=== PATIENT | male | born 1975 | race Caucasian/White ===

== ENCOUNTER 2018-01-28 17:07 | Inpatient (IN) ==
[2018-01-28] MEDS ORDERED: Sod Chloride 0.9% Inj 1,000 ML IV.SIG ONE (17:29)
[2018-01-28] MEDS ORDERED: Morphine Inj 4 MG/ML Vial IV.PUSH ONE ×2 (17:29→19:18)
--- NOTE | 2018-01-28 17:33 | ED ---
HPI General Chief Complaint: Chest Pain Stated Complaint: Chest Pain/abdominal pain Source: patient Mode of arrival: ambulatory Limitations: no limitations History of Present Illness MD complaint: abdominal pain Onset (ago): hour(s) (6) Pain Consistency: constant Location: RUQ and R flank Severity scale (1-10): 9 Quality: cramping Migration to: other (Chest) Relieving factors: nothing Exacerbating factors: nothing Associated symptoms: nausea and vomiting Related Data Home Medications Medication Instructions Recorded Confirmed No Known Home Medications 01/28/18 01/28/18 Allergies Allergy/AdvReac Type Severity Reaction Status Date / Time No Known Allergies Allergy Unverified 01/28/18 18:03 Review of Systems ROS: all other systems reviewed are negative [facility] Medical History Medical History Kidney stones (Acute) Social History Social History Substance History: No History of Abuse Second Hand Smoke Exposure: No Smoking Status: Never smoker How Often Do You Have a Drink Containing Alcohol: Monthly or less Recent Travel in [facility] within the Last 8 Weeks: No Recent Out of Country Travel within the Last 8 Weeks: No Immunization History Tetanus Immunization: Unsure Hx Influenza Vaccine This Season: Yes Exam Const General: cooperative, healthy appearing, well developed, well groomed, acute distress and diaphoretic Orientation: alert, awake and oriented x3 HENMT Head: normal to inspection, normocephalic and atraumatic Mouth: moist mucous membranes Eyes Conjunctivae: conjunctivae normal Sclera: sclerae normal EOM: EOM intact bilaterally Neck Neck: normal visual inspection and full ROM Chest Chest: normal inspection of the chest Resp Effort & Inspection: normal respiratory effort and able to speak in complete sentences Auscultation: clear to auscultation bilaterally Cardio Rate: regular rate Rhythm: regular rhythm GI Inspection: normal to inspection Palpation: soft and tender in the epigastrum and in the RUQ Back/Spine/Pelvis Cervical Spine: cervical ROM normal Thoracic/Lumbar Spine: thoraco-lumbar ROM normal Skin General: no rashes or lesions noted and turgor normal Neuro General: alert, awake, oriented x3, moves all extremities and CN's II-XI intact bilaterally Extrem General: normal to inspection and full ROM Psych Appearance: grossly normal Mental Status: mental status grossly normal Speech and Movement: speech and movement normal Mood: congruent mood Affect: normal affect Attitude: cooperative Thought Process: normal Thought Content: normal Judgment: judgment good Course Reevaluation(s) Reevaluation #1: Patient reports fairly good relief of his pain initially with morphine. However, his pain recurred with the ultrasound. He has been given an additional dose of morphine. Time: 19:23 Initial Documented Vital Signs Pulse Rate 84 01/28/18 17:25 Respiratory Rate 20 01/28/18 17:25 Blood Pressure 168/102 H 01/28/18 17:25 Pulse Oximetry 99 01/28/18 17:25 Last Documented Vital Signs Pulse Rate 54 L 01/28/18 19:50 Respiratory Rate 16 01/28/18 19:54 Blood Pressure 172/87 H 01/28/18 19:50 Pulse Oximetry 95 01/28/18 19:50 Medical Decision Making MDM Narrative Medical decision making narrative: This patient presents with the acute onset of right upper quadrant/flank pain at 11:00 this morning associated with an episode of emesis. He has subsequently developed some chest discomfort. His exam is remarkable for right upper quadrant tenderness. An IV is being started and he will be treated with IV morphine and ODT Zofran. I will also give him a liter of fluid. Routine abdominal pain labs are pending. Troponin has also been ordered. Gallbladder ultrasound has been ordered. Ultrasound shows cholelithiasis with gallbladder wall thickening. I am told that a cholecystectomy is on the list of procedures that can be done in [place]. Therefore, I have asked for admission to [facility] with consult to general surgery. Medical Screen Exam Complete: Yes Emergency Medical Condition: Yes Differential Diagnosis Differential Diagnosis: Differential diagnosis of abdominal pain includes but is not limited to gastritis, pancreatitis, hepatitis, gastroenteritis, constipation, urinary retention, peptic ulcer disease, diverticulitis or appendicitis Lab Data Lab results reviewed: Yes I reviewed the patient's lab results. Result diagrams: 01/28/18 17:40 01/28/18 17:40 Lab Results 01/28/18 01/28/18 Range/Units 17:40 17:40 CBC w Diff Auto diff final WBC 9.3 (4.0-11.0) th/mm3 RBC 5.23 (4.50-5.90) mil/mm3 Hgb 17.6 H (13.0-17.0) gm/dL Hct 50.9 (39.0-51.0) % MCV 97.4 (80.0-100.0) fL MCH 33.7 (27.0-34.0) pg MCHC 34.6 (32.0-36.0) % RDW 14.2 (11.6-17.2) % Plt Count 215 (150-450) th/mm3 MPV 9.4 (7.0-11.0) fL Neut % (Auto) 82.9 H (16.0-70.0) % Lymph % (Auto) 12.1 (9.0-44.0) % Mcculloch % (Auto) 4.3 (0.0-8.0) % Eos % (Auto) 0.4 (0.0-4.0) % Baso % (Auto) 0.3 (0.0-2.0) % Neut # (Auto) 7.8 H (1.8-7.7) th/mm3 Lymph # (Auto) 1.1 (1.0-4.8) th/mm3 Mcculloch # (Auto) 0.4 (0.0-0.9) th/mm3 Eos # (Auto) 0.0 (0.0-0.4) th/mm3 Baso # (Auto) 0.0 (0.0-0.2) th/mm3 WBC Differential . Differential Comment . Sodium 139 (136-145) meq/L Potassium 4.0 (3.5-5.1) meq/L Chloride 104 (98-107) meq/L Carbon Dioxide 28.8 (21.0-32.0) meq/L Anion Gap 6 (5-15) meq/L BUN 12 (7-18) mg/dL Creatinine 1.20 (0.60-1.30) mg/dL Estimated GFR 67 L (>89) mL/min Random Glucose 140 H (74-106) mg/dL Calcium 9.1 (8.5-10.1) mg/dL Total Bilirubin 0.5 (0.2-1.0) mg/dL AST 24 (15-37) U/L ALT 35 (12-78) U/L Alkaline Phosphatase 95 (45-117) U/L Troponin I Less than 0.02 L (0.02-0.05) ng/mL Total Protein 7.8 (6.4-8.2) g/dL Albumin 4.0 (3.4-5.0) g/dL Lipase 111 (73-393) U/L Imaging Data Radiologist's impression: Gallbladder Ultrasound 01/28/18 17:29 CONCLUSION: 1. Thick-walled gallbladder containing a gallstone in the neck suggesting possible acute cholecystitis. Clinical correlation is recommended. 2. Enlarged fatty liver. 3. Echogenic right kidney. ECG Data EKG Prior to Arrival: No Attestation: I personally reviewed and interpreted this ECG as follows: (EKG shows a sinus rhythm with a rate of 53. No STT wave changes noted.) Discharge Plan Discharge Disposition Patient Disposition: 30 Still Patient Discharge Details Diagnosis: Biliary colic Physicians Team ED Provider: Yashira Herring Primary Care Provider: [facility] Payton Attending Provider: Bridger Nash Other Providers: Abdoulaye Mcrae Status ED Status: Admitted Patient
[2018-01-28 17:48] LABS: Baso % (Auto) 0.3 % (0.0-2.0); Eos % (Auto) 0.4 % (0.0-4.0); Hematocrit 50.9 % (39.0-51.0); Hemoglobin 17.6 gm/dL (13.0-17.0); Lymph # (Auto) 1.1 th/mm3 (1.0-4.8); Lymph % (Auto) 12.1 % (9.0-44.0); Mean Corpuscular HGB Conc 34.6 % (32.0-36.0); Mean Corpuscular Hemoglobin 33.7 pg (27.0-34.0); Mean Corpuscular Volume 97.4 fL (80.0-100.0); Mean Platelet Volume 9.4 fL (7.0-11.0); Mono # (Auto) 0.4 th/mm3 (0.0-0.9); Mono % (Auto) 4.3 % (0.0-8.0); Neut # (Auto) 7.8 th/mm3 (1.8-7.7); Neut % (Auto) 82.9 % (16.0-70.0); Platelet Count 215 th/mm3 (150-450); Red Blood Count 5.23 mil/mm3 (4.50-5.90); Red Cell Distribution Width 14.2 % (11.6-17.2); White Blood Count 9.3 th/mm3 (4.0-11.0)
[2018-01-28 17:56] LABS: Chloride 104 meq/L (98-107); Sodium 139 meq/L (136-145)
[2018-01-28 18:00] LABS: Anion Gap 6 meq/L (5-15); Blood Urea Nitrogen 12 mg/dL (7-18); Calcium 9.1 mg/dL (8.5-10.1); Carbon Dioxide 28.8 meq/L (21.0-32.0); Glucose,Random 140 mg/dL (74-106); Lipase 111 U/L (73-393)
[2018-01-28 18:03] LABS: Alanine Aminotransferase 35 U/L (12-78); Aspartate Aminotransferase 24 U/L (15-37); Glomerular Filtration Rate 67 mL/min (>89)
[2018-01-28 18:05] LABS: Total Protein 7.8 g/dL (6.4-8.2)
[2018-01-28 18:06] LABS: Alkaline Phosphatase 95 U/L (45-117)
--- NOTE | 2018-01-28 19:39 | US ---
EXAM DATE: 01/28/2018 7:13 PM EDT AGE/SEX: 42 years / Male INDICATIONS: Epigastric pain with nausea and vomiting. CLINICAL DATA: This is the patient's initial encounter. Patient reports that signs and symptoms have been present for 1 day and indicates a pain score of 9/10. MEDICAL/SURGICAL HISTORY: Renal calculi. None. COMPARISON: . MEASUREMENTS: Liver:__ 18.4 cm. Common Bile Duct:__ 7mm. FINDINGS: Liver: Increased echotexture without focal lesion or ductal dilation. Portal Vein: Hepatopedal flow seen in portal vein. Common Duct: No intraluminal mass or stone visualized. Gallbladder: There is a gallstone within the neck of the gallbladder as well as gallbladder wall thi ckening. The findings raise the possibility of acute cholecystitis. Clinical correlation is recommend ed. Pancreas: The visualized portions are within normal limits Right Kidney: Increased echotexture. No mass or hydronephrosis. CONCLUSION: 1. Thick-walled gallbladder containing a gallstone in the neck suggesting possible acute cholecystit is. Clinical correlation is recommended. 2. Enlarged fatty liver. 3. Echogenic right kidney. Electronically signed by: Donnie Doran MD 01/28/2018 7:37 PM EDT
[2018-01-28] MEDS ORDERED: Bisacodyl 10 MG Supp RECTAL PRN (20:00)
[2018-01-28] MEDS ORDERED: Naloxone Inj 0.4 MG/ML Vial IV.PUSH PRN (20:05)
[2018-01-28] MEDS ORDERED: Morphine Sulfate Inj 2 MG/ML Vial IV.PUSH PRN (20:05)
[2018-01-28] MEDS: Sod Chloride 0.9% Inj 1,000 ML IV.CONT SCH (22:58)
[2018-01-28] MEDS: Morphine Inj 4 MG/ML Vial IV.PUSH PRN (23:27)
[2018-01-28 23:48] LABS: Bilirubin,Urine Negative (Negative); Clarity,Urine Clear (Clear); Color,Urine Yellow (Yellw/Straw); Glucose,Urine (UA) Negative (Negative); Leukocyte Esterase,Urine Negative (Negative); Nitrite,Urine Negative (Negative); Specific Gravity,Urine 1.025 (1.002-1.035)
[2018-01-28 23:52] LABS: RBC,Urine 0-3 /hpf (0-3); Squamous Epithelial Cell,Urine 0-5 /hpf (0-5); WBC,Urine 0-5 /hpf (0-5)
[2018-01-29] MEDS: Morphine Inj 4 MG/ML Vial IV.PUSH PRN (03:32)
[2018-01-29] MEDS: Sod Chloride 0.9% Inj 1,000 ML IV.CONT SCH ×2 (05:17→18:17)
[2018-01-29 06:56] LABS: Baso % (Auto) 0.2 % (0.0-2.0); Eos # (Auto) 0.1 th/mm3 (0.0-0.4); Eos % (Auto) 0.5 % (0.0-4.0); Hematocrit 54.5 % (39.0-51.0); Hemoglobin 18.1 gm/dL (13.0-17.0); Lymph # (Auto) 0.8 th/mm3 (1.0-4.8); Lymph % (Auto) 7.8 % (9.0-44.0); Mean Corpuscular HGB Conc 33.2 % (32.0-36.0); Mean Corpuscular Hemoglobin 33.2 pg (27.0-34.0); Mean Corpuscular Volume 99.9 fL (80.0-100.0); Mean Platelet Volume 10.6 fL (7.0-11.0); Mono # (Auto) 0.1 th/mm3 (0.0-0.9); Mono % (Auto) 0.9 % (0.0-8.0); Neut # (Auto) 9.2 th/mm3 (1.8-7.7); Neut % (Auto) 90.6 % (16.0-70.0); Platelet Count 183 th/mm3 (150-450); Red Blood Count 5.45 mil/mm3 (4.50-5.90); Red Cell Distribution Width 13.9 % (11.6-17.2); White Blood Count 10.2 th/mm3 (4.0-11.0)
[2018-01-29 07:07] LABS: Chloride 103 meq/L (98-107); Potassium 3.9 meq/L (3.5-5.1); Sodium 139 meq/L (136-145)
[2018-01-29 07:13] LABS: Albumin 4.1 g/dL (3.4-5.0); Anion Gap 9 meq/L (5-15); Calcium 8.7 mg/dL (8.5-10.1); Carbon Dioxide 26.9 meq/L (21.0-32.0); Glucose,Random 92 mg/dL (74-106)
[2018-01-29 07:14] LABS: Blood Urea Nitrogen 10 mg/dL (7-18)
[2018-01-29 07:16] LABS: Alanine Aminotransferase 35 U/L (12-78); Aspartate Aminotransferase 23 U/L (15-37)
[2018-01-29 07:17] LABS: Glomerular Filtration Rate 67 mL/min (>89)
[2018-01-29 07:18] LABS: Total Protein 8.3 g/dL (6.4-8.2)
[2018-01-29 07:19] LABS: Alkaline Phosphatase 98 U/L (45-117)
--- NOTE | 2018-01-29 10:46 | P.CONGS ---
HPI Gen Surgery Consult Note Consult date: 01/29/18 Reason for consult: gallstones Narrative: This is a 42 year old male with a past medical history of kidney stones who presented to ED with complaints acute onset of abdominal pain with no associated nausea or vomiting. The patient stated the pain began about 11AM on Saturday. An US was obtained which shows some gallbladder wall thickening and cholelithiasis. His WBC is normal. His liver enzymes are normal. He reports not dietary intolerances. A General Surgery consultation has been requested. Review of Systems Constitutional: Denies body ache(s), Denies chills, Denies fatigue Eyes: Denies bulging eyes Ears, Nose, Mouth, and Throat: Denies headache(s) Cardiovascular: Denies chest pain, Denies chest pain at rest, Denies chest pain with activity Respiratory: Denies chest congestion, Denies cough Gastrointestinal: Reports abdominal pain, Denies nausea, Denies vomiting Genitourinary: Denies urinary incontinence Musculoskeletal: Denies back pain Skin/Breast: Denies lesions Neurologic: Denies headache(s) Psychiatric: Denies anxiety, Denies depression Endocrine: Denies cold intolerance, Denies heat intolerance Hematologic/Lymphatic: Denies easy bleeding Allergic/Immunologic: Denies GI upset with certain foods PMFSH - History History Provided By: Patient - Medical History Medical History: Medical History (Last Reviewed 01/29/18 @ 13:51 by ALISSON Briseno) Kidney stones - Surgical History Surgical History: Surgical History (Last Reviewed 01/29/18 @ 13:51 by ALISSON Briseno) History of hand surgery History of tympanoplasty - Family History Family History: Family History (Last Updated 01/29/18 @ 10:54 by BRI Camargo) Other No pertinent family history - Tobacco History Second Hand Smoke Exposure: No Smoking Status: Never smoker - Alcohol History How Often Do You Have a Drink Containing Alcohol: Monthly or less - Substance Use History Substance History: No History of Abuse - Travel History Recent Travel in the [place] Within the Last 8 Weeks: No Recent Travel Out of the Country Within the Last 8 Weeks: No - Immunization History Tetanus Immunization: Unsure Hx Influenza Vaccine This Season: Yes Medications and Allergies Allergies Allergy/AdvReac Type Severity Reaction Status Date / Time No Known Allergies Allergy Unverified 01/29/18 11:19 Home Medications Medication Instructions Recorded Confirmed Type No Known Home Medications 01/28/18 01/28/18 History Active Medications: Active Medications Hydrocodone Bitart/Acetaminophen ([place] 7.5/325) 1 tab PO Q4H PRN PRN Reason: PAIN SCALE 6 TO 10 Last Admin: 01/29/18 07:58 Dose: 1 tab Hydrocodone Bitart/Acetaminophen ([place] 5/325) 1 tab PO Q4H PRN PRN Reason: PAIN SCALE 3 TO 5 Al Hydroxide/Mg Hydroxide (Milk Of Magnesia Liq) 30 ml PO Q12H PRN PRN Reason: Mild Constipation Bisacodyl (Dulcolax Supp) 10 mg RECTAL DAILY PRN PRN Reason: SEVERE CONSITIPATION Enalaprilat (Vasotec Inj) 1.25 mg IV.PUSH Q6H PRN PRN Reason: SBP>160, DBP>90 Last Admin: 01/28/18 21:20 Dose: 1.25 mg Sodium Chloride (Ns Inj) 1,000 mls @ 100 mls/hr IV.CONT .Q10H [facility] Last Infusion: 01/29/18 05:18 Dose: Infused Ceftriaxone Sodium 2,000 mg/ (Sodium Chloride) 100 mls @ 200 mls/hr IV.SIG Q24H [facility] Last Infusion: 01/28/18 22:25 Dose: Infused Lactulose (Lactulose Liq) 30 ml PO DAILY PRN PRN Reason: SEVERE CONSITIPATION Morphine Sulfate (Morphine Inj) 2 mg IV.PUSH Q3H PRN PRN Reason: PAIN 3-5; IF UABLE TO TAKE PO Morphine Sulfate (Morphine Inj) 4 mg IV.PUSH Q3H PRN PRN Reason: PAIN 6-10;IF UNABLE TO TAKE PO Last Admin: 01/29/18 03:32 Dose: 4 mg Naloxone HCl (Narcan Inj) 0.4 mg IV.PUSH UNSCH PRN PRN Reason: SEE LABEL COMMENTS Sennosides (Senokot) 17.2 mg PO Q12H PRN PRN Reason: Moderate Constipation Sodium Chloride (Ns Flush) 2 ml IV.FLUSH PRN PRN PRN Reason: FLUSH AFTER USING IV ACCESS Last Admin: 01/28/18 18:06 Dose: 2 ml Exam Vital signs: Vital Signs 01/28/18 17:25 01/28/18 19:50 08/28/18 19:54 Temperature Pulse Rate 84 54 L Respiratory Rate 20 16 Blood Pressure 168/102 H 172/87 H Pulse Oximetry 99 95 01/28/18 21:17 01/28/18 22:17 01/29/18 00:00 Temperature 97.5 F L Pulse Rate 62 52 L 67 Respiratory Rate 18 16 18 Blood Pressure 163/84 H 189/89 H 140/92 H Pulse Oximetry 100 98 92 L 01/29/18 04:00 01/29/18 08:00 Temperature 101.0 F H 99.8 F H Pulse Rate 65 103 H Respiratory Rate 18 20 Blood Pressure 138/61 142/81 H Pulse Oximetry 98 94 L Intake & Output 01/28/18 01/29/18 01/29/18 18:59 06:59 18:59 Intake Total 3100 / 3100 Output Total 650 / 650 Balance 2450 / 2450 Weight 119 kg 119 kg Intake: IV 3100 / 3100 NS Inj 1,000 ML @ 100 mls/hr IV 2000 / 1999 .CONT .Q10H [facility] Rx#:[id number] NS Inj 1,000 ML @ Wide Open IV. 1000 / 1000 SIG BOLUS ONE Rx#:[id number] Rocephin Inj 2,000 MG In NS Inj 100 / 100 100 ML @ 200 mls/hr IV.SIG Q24H [facility]QU[facility] Rx#:[id number] Output: Urine 650 / 650 Narrative: GENERAL: Pleasant 42 year male resting in bed in no acute distress. SKIN: Warm and dry. HEAD: Atraumatic. Normocephalic. EYES: Pupils equal and round. No scleral icterus. No injection or drainage. ENT: No nasal bleeding or discharge. Mucous membranes pink and moist. NECK: Trachea midline. No JVD. CARDIOVASCULAR: Regular rate and rhythm. RESPIRATORY: No accessory muscle use. Clear to auscultation. Breath sounds equal bilaterally. GASTROINTESTINAL: Abdomen soft, non distended. Obese. No visible scars or hernias. RUQ tenderness with palpation. MUSCULOSKELETAL: Extremities without clubbing, cyanosis, or edema. No obvious deformities. NEUROLOGICAL: Awake and alert. No obvious cranial nerve deficits. Motor grossly within normal limits. Five out of 5 muscle strength in the arms and legs. Normal speech. PSYCHIATRIC: Appropriate mood and affect; insight and judgment normal. Results - Labs 01/29/18 05:15 08/29/18 05:15 Abnormal lab results 01/28/18 01/28/18 01/28/18 Range/Units 17:40 17:40 23:00 Hgb 17.6 H (13.0-17.0) gm/dL Hct (39.0-51.0) % Neut % (Auto) 82.9 H (16.0-70.0) % Lymph % (Auto) (9.0-44.0) % Neut # (Auto) 7.8 H (1.8-7.7) th/mm3 Lymph # (Auto) (1.0-4.8) th/mm3 Estimated GFR 67 L (>89) mL/min Random Glucose 140 H (74-106) mg/dL Troponin I Less than 0.02 L (0.02-0.05) ng/mL Total Protein (6.4-8.2) g/dL Urine Ketones 15 H (Negative) mg/dL 01/29/18 01/29/18 Range/Units 05:15 05:15 Hgb 18.1 H (13.0-17.0) gm/dL Hct 54.5 H (39.0-51.0) % Neut % (Auto) 90.6 H (16.0-70.0) % Lymph % (Auto) 7.8 L (9.0-44.0) % Neut # (Auto) 9.2 H (1.8-7.7) th/mm3 Lymph # (Auto) 0.8 L (1.0-4.8) th/mm3 Estimated GFR 67 L (>89) mL/min Random Glucose (74-106) mg/dL Troponin I (0.02-0.05) ng/mL Total Protein 8.3 H (6.4-8.2) g/dL Urine Ketones (Negative) mg/dL Diabetes panel 01/28/18 01/29/18 Range/Units 17:40 05:15 Sodium 139 139 (136-145) meq/L Potassium 4.0 3.9 (3.5-5.1) meq/L Chloride 104 103 (98-107) meq/L Carbon Dioxide 28.8 26.9 (21.0-32.0) meq/L BUN 12 10 (7-18) mg/dL Creatinine 1.20 1.20 (0.60-1.30) mg/dL Calcium 9.1 8.7 (8.5-10.1) mg/dL AST 24 23 (15-37) U/L ALT 35 35 (12-78) U/L Alkaline Phosphatase 95 98 (45-117) U/L Total Protein 7.8 8.3 H (6.4-8.2) g/dL Albumin 4.0 4.1 (3.4-5.0) g/dL Calcium panel 01/28/18 01/29/18 Range/Units 17:40 05:15 Calcium 9.1 8.7 (8.5-10.1) mg/dL Albumin 4.0 4.1 (3.4-5.0) g/dL Pituitary panel 01/28/18 01/29/18 Range/Units 17:40 05:15 Sodium 139 139 (136-145) meq/L Potassium 4.0 3.9 (3.5-5.1) meq/L Chloride 104 103 (98-107) meq/L Carbon Dioxide 28.8 26.9 (21.0-32.0) meq/L BUN 12 10 (7-18) mg/dL Creatinine 1.20 1.20 (0.60-1.30) mg/dL Calcium 9.1 8.7 (8.5-10.1) mg/dL Adrenal panel 01/28/18 01/29/18 Range/Units 17:40 05:15 Sodium 139 139 (136-145) meq/L Potassium 4.0 3.9 (3.5-5.1) meq/L Chloride 104 103 (98-107) meq/L Carbon Dioxide 28.8 26.9 (21.0-32.0) meq/L BUN 12 10 (7-18) mg/dL Creatinine 1.20 1.20 (0.60-1.30) mg/dL Calcium 9.1 8.7 (8.5-10.1) mg/dL Total Bilirubin 0.5 0.8 (0.2-1.0) mg/dL AST 24 23 (15-37) U/L ALT 35 35 (12-78) U/L Alkaline Phosphatase 95 98 (45-117) U/L Total Protein 7.8 8.3 H (6.4-8.2) g/dL Albumin 4.0 4.1 (3.4-5.0) g/dL All other labs normal. - Imaging Additional studies: US gallbladder Assessment and Plan - Assessment (1) Biliary colic Code(s): K80.50 - Calculus of bile duct without cholangitis or cholecystitis without obstruction Status: Acute Plan: 42 year old male with RUQ abdominal pain; cholelithiasis -Plan for laparoscopic cholecystectomy today -NPO -Obtain consents -Ancef preop -Explained procedure in detail including risks and benefits -All questions answered -Thank you for this consult patient seen at bedside ruq pain, acute cholecystitis need for lap alejandra discussed with patient and girl friend - Plan Discussed Condition With: Dr. Christian GREGORY MrTristan and Mrs. Hoffmann - Attending Attestation The exam, history, and the medical decision-making described in the above note were completed with the assistance of the mid-level provider. I reviewed and agree with the findings presented. I attest that I had a [id number] encounter with the patient on the same day, and personally performed and documented my assessment and findings in the medical record.
--- NOTE | 2018-01-29 11:05 | P.HP ---
History of Present Illness Primary Care Physician: No Primary Care Physician Chief Complaint: Abdominal pain History of Present Illness: 42-year-old male with no chronic medical illnesses who developed sudden onset of right-sided abdominal pain after he ate a a and cheese wrap from [employer]. Patient states that the pain started on the right side and progressively got worse until it was a 10/10 on a pain scale. Patient states that he has had history of kidney stones before he thought that might have been the problem but because the pain did not go away he came to the emergency department for evaluation. Upon workup patient was found to have gallbladder wall thickening with multiple stones and acute cholecystitis. Patient was admitted with surgical consultation. Patient states that the pain is controlled at this time. Plan for surgery today. - Diagnosis (1) Acute cholecystitis Inpatient Certification: I certify that the inpatient services were ordered in accordance with Medicare regulations governing the order. This includes certification that hospital inpatient services are reasonable and necessary and in the case of services not specified as inpatient-only under 42 CFR 419.22(n), that they are appropriately provided as inpatient services in accordance to with the 2-midnight benchmark under 43 CFR 412.3(e) Estimated Total Length of Stay (Days): 2 Plans for Post Hospital Care: Home Review of Systems All other systems reviewed negative except as stated in HPI Gastrointestinal: Reports abdominal pain PMFSH - History History Provided By: Patient - Medical History Medical History: Medical History (Last Reviewed 01/29/18 @ 11:01 by BRI Camargo) Kidney stones - Surgical History Surgical History: Surgical History (Last Reviewed 01/29/18 @ 13:51 by ALISSON Briseno) History of hand surgery History of tympanoplasty - Family History Family History: Family History (Last Updated 01/29/18 @ 10:54 by BRI Camargo) Other No pertinent family history - Tobacco History Second Hand Smoke Exposure: No Smoking Status: Never smoker - Alcohol History How Often Do You Have a Drink Containing Alcohol: Monthly or less - Substance Use History Substance History: No History of Abuse - Travel History Recent Travel in the [place] Within the Last 8 Weeks: No Recent Travel Out of the Country Within the Last 8 Weeks: No - Immunization History Tetanus Immunization: Unsure Hx Influenza Vaccine This Season: Yes Medications and Allergies Active Medications: Active Medications Hydrocodone Bitart/Acetaminophen ([place] 7.5/325) 1 tab PO Q4H PRN PRN Reason: PAIN SCALE 6 TO 10 Last Admin: 01/29/18 07:58 Dose: 1 tab Hydrocodone Bitart/Acetaminophen ([place] 5/325) 1 tab PO Q4H PRN PRN Reason: PAIN SCALE 3 TO 5 Al Hydroxide/Mg Hydroxide (Milk Of Magnesia Liq) 30 ml PO Q12H PRN PRN Reason: Mild Constipation Bisacodyl (Dulcolax Supp) 10 mg RECTAL DAILY PRN PRN Reason: SEVERE CONSITIPATION Enalaprilat (Vasotec Inj) 1.25 mg IV.PUSH Q6H PRN PRN Reason: SBP>160, DBP>90 Last Admin: 01/28/18 21:20 Dose: 1.25 mg Sodium Chloride (Ns Inj) 1,000 mls @ 100 mls/hr IV.CONT .Q10H [facility] Last Infusion: 01/29/18 05:18 Dose: Infused Ceftriaxone Sodium 2,000 mg/ (Sodium Chloride) 100 mls @ 200 mls/hr IV.SIG Q24H [facility] Last Infusion: 01/28/18 22:25 Dose: Infused Lactulose (Lactulose Liq) 30 ml PO DAILY PRN PRN Reason: SEVERE CONSITIPATION Morphine Sulfate (Morphine Inj) 2 mg IV.PUSH Q3H PRN PRN Reason: PAIN 3-5; IF UABLE TO TAKE PO Morphine Sulfate (Morphine Inj) 4 mg IV.PUSH Q3H PRN PRN Reason: PAIN 6-10;IF UNABLE TO TAKE PO Last Admin: 01/29/18 03:32 Dose: 4 mg Naloxone HCl (Narcan Inj) 0.4 mg IV.PUSH UNSCH PRN PRN Reason: SEE LABEL COMMENTS Sennosides (Senokot) 17.2 mg PO Q12H PRN PRN Reason: Moderate Constipation Sodium Chloride (Ns Flush) 2 ml IV.FLUSH PRN PRN PRN Reason: FLUSH AFTER USING IV ACCESS Last Admin: 01/28/18 18:06 Dose: 2 ml Allergies Allergy/AdvReac Type Severity Reaction Status Date / Time No Known Allergies Allergy Unverified 01/29/18 11:19 Home Medications Medication Instructions Recorded Confirmed Type No Known Home Medications 01/28/18 01/28/18 History Exam Vital signs: Vital Signs 01/28/18 17:25 01/28/18 19:50 01/28/18 19:54 Temperature Pulse Rate 84 54 L Respiratory Rate 20 16 Blood Pressure 168/102 H 172/87 H Pulse Oximetry 99 95 01/28/18 21:17 01/28/18 22:17 01/29/18 00:00 Temperature 97.5 F L Pulse Rate 62 52 L 67 Respiratory Rate 18 16 18 Blood Pressure 163/84 H 189/89 H 140/92 H Pulse Oximetry 100 98 92 L 01/29/18 04:00 01/29/18 08:00 Temperature 101.0 F H 99.8 F H Pulse Rate 65 103 H Respiratory Rate 18 20 Blood Pressure 138/61 142/81 H Pulse Oximetry 98 94 L Intake & Output 01/28/18 01/29/18 01/29/18 18:59 06:59 18:59 Intake Total 3100 / 3100 Output Total 650 / 650 Balance 2450 / 2450 Weight 119 kg 119 kg Intake: IV 3100 / 3100 NS Inj 1,000 ML @ 100 mls/hr IV 1999 / 1999 .CONT .Q10H [facility] Rx#:[id number] NS Inj 1,000 ML @ Wide Open IV. 1000 / 1000 SIG BOLUS ONE Rx#:[id number] Rocephin Inj 2,000 MG In NS Inj 100 / 100 100 ML @ 200 mls/hr IV.SIG Q24H [facility] Rx#:[id number] Output: Urine 650 / 650 Narrative: GENERAL: Well-developed, well-nourished, in no acute distress. alert and orientated HEENT: Head is normocephalic without any lesions or masses noted. Facial features are symmetric. Eyes: Pupils equal round reactive to light. Extraocular muscles are intact. Conjunctivae were clear. Oropharyngeal: Pharynx without any erythema edema. Tongue is midline without deviation. Buccal mucosa is moist without any masses or lesions NECK: Supple without any masses. Trachea midline no deviation. No JVD, no bruits are appreciated CARDIAC: Regular rhythm, regular rate. S1/S2 are heard. No murmurs gallops or rubs. LUNGS: Clear to auscultation bilaterally. No wheeze, rhonchi or rales. No use of accessory muscles on inspiration or expiration. ABDOMEN: Soft, mild tenderness in the right upper quadrant.. Nondistended. Bowel sounds heard in all 4 quadrants. No organomegaly or masses. Negative rebound, negative guarding EXTREMITIES: No edema, pulses are equal bilaterally. No cyanosis or clubbing NEUROLOGY: Mood and affect appear appropriate. Cranial nerves II through XII grossly intact. Muscle strength 5/5 in upper and lower extremities bilaterally. Deep tendon reflexes are 2+ in upper and lower extremities bilaterally. Results - Labs CBC & Chem 7: 01/29/18 05:15 01/29/18 05:15 Labs: Laboratory Results - last 24 hr 01/28/18 01/28/18 01/28/18 17:40 17:40 23:00 CBC w Diff Auto diff final WBC 9.3 RBC 5.23 Hgb 17.6 H Hct 50.9 MCV 97.4 MCH 33.7 MCHC 34.6 RDW 14.2 Plt Count 215 MPV 9.4 Neut % (Auto) 82.9 H Lymph % (Auto) 12.1 Russell % (Auto) 4.3 Eos % (Auto) 0.4 Baso % (Auto) 0.3 Neut # (Auto) 7.8 H Lymph # (Auto) 1.1 Russell # (Auto) 0.4 Eos # (Auto) 0.0 Baso # (Auto) 0.0 WBC Differential . Differential Comment . Sodium 139 Potassium 4.0 Chloride 104 Carbon Dioxide 28.8 Anion Gap 6 BUN 12 Creatinine 1.20 Estimated GFR 67 L Random Glucose 140 H Calcium 9.1 Total Bilirubin 0.5 AST 24 ALT 35 Alkaline Phosphatase 95 Troponin I Less than 0.02 L Total Protein 7.8 Albumin 4.0 Lipase 111 Urine Color Yellow Urine Clarity Clear Urine pH 6.0 Ur Specific [place] 1.025 Urine Protein Negative Urine Glucose (UA) Negative Urine Ketones 15 H Urine Occult Blood Negative Urine Nitrate Negative Urine Bilirubin Negative Urine Urobilinogen 1.0 Ur Leukocyte Esterase Negative Urine RBC 0-3 Urine WBC 0-5 Ur Squamous Epith Cells 0-5 Micro UA Comment Culture not ind Ur Microscopic Review Microscopic reviewed Urine Culture Comments Culture not ind 01/29/18 01/29/18 05:15 05:15 CBC w Diff Auto diff final WBC 10.2 RBC 5.45 Hgb 18.1 H Hct 54.5 H MCV 99.9 MCH 33.2 MCHC 33.2 RDW 13.9 Plt Count 183 MPV 10.6 Neut % (Auto) 90.6 H Lymph % (Auto) 7.8 L Russell % (Auto) 0.9 Eos % (Auto) 0.5 Baso % (Auto) 0.2 Neut # (Auto) 9.2 H Lymph # (Auto) 0.8 L Russell # (Auto) 0.1 Eos # (Auto) 0.1 Baso # (Auto) 0.0 WBC Differential . Differential Comment . Sodium 139 Potassium 3.9 Chloride 103 Carbon Dioxide 26.9 Anion Gap 9 BUN 10 Creatinine 1.20 Estimated GFR 67 L Random Glucose 92 Calcium 8.7 Total Bilirubin 0.8 AST 23 ALT 35 Alkaline Phosphatase 98 Troponin I Total Protein 8.3 H Albumin 4.1 Lipase Urine Color Urine Clarity Urine pH Ur Specific [place] Urine Protein Urine Glucose (UA) Urine Ketones Urine Occult Blood Urine Nitrate Urine Bilirubin Urine Urobilinogen Ur Leukocyte Esterase Urine RBC Urine WBC Ur Squamous Epith Cells Micro UA Comment Ur Microscopic Review Urine Culture Comments - Imaging Impressions Gallbladder Ultrasound 01/28/18 17:29 CONCLUSION: 1. Thick-walled gallbladder containing a gallstone in the neck suggesting possible acute cholecystitis. Clinical correlation is recommended. 2. Enlarged fatty liver. 3. Echogenic right kidney. Caprini VTE Risk Assessment Caprini VTE Risk Assessment: No/Low Risk (score <= 1) Caprini Risk Assessment Model: Point Value = 1 Point Value = 2 Point Value = 3 Point Value = 5 Age 41-60 Minor surgery BMI > 25 kg/m2 Swollen legs Varicose veins or History of unexplained or recurrent spontaneous Oral contraceptives or hormone replacement Sepsis (< 1 month) Serious lung disease, including pneumonia (< 1 month) Abnormal pulmonary function Acute myocardial infarction Congestive heart failure (< 1 month) History of inflammatory bowel disease Medical patient at bed rest Age 61-74 Arthroscopic surgery Major open surgery (> 45 min) Laparoscopic surgery (> 45 min) Malignancy Confined to bed (> 72 hours) Immobilizing plaster cast Central venous access Age >= 75 History of VTE Family history of VTE Factor V Leiden Prothrombin [id number] Lupus anticoagulant Anticardiolipin antibodies Elevated serum homocysteine Heparin-induced thrombocytopenia Other congenital or acquired thrombophilia Stroke (< 1 month) Elective arthroplasty Hip, pelvis, or leg fracture Acute spinal cord injury (< 1 month) Prophylaxis Regimen: Total Risk Factor Score Risk Level Prophylaxis Regimen 0-1 Low Early ambulation 2 Moderate Order ONE of the following: *Sequential Compression Device (SCD) *Heparin 5000 units SQ BID 3-4 Higher Order ONE of the following medications: *Heparin 5000 units SQ TID *Enoxaparin/Lovenox 40 mg SQ daily (WT < 150 kg, CrCl > 30 mL/min) *Enoxaparin/Lovenox 30 mg SQ daily (WT < 150 kg, CrCl > 10-29 mL/min) *Enoxaparin/Lovenox 30 mg SQ BID (WT < 150 kg, CrCl > 30 mL/min) AND/OR *Sequential Compression Device (SCD) 5 or more Highest Order ONE of the following medications: *Heparin 5000 units SQ TID (Preferred with Epidurals) *Enoxaparin/Lovenox 40 mg SQ daily (WT < 150 kg, CrCl > 30 mL/min) *Enoxaparin/Lovenox 30 mg SQ daily (WT < 150 kg, CrCl > 10-29 mL/min) *Enoxaparin/Lovenox 30 mg SQ BID (WT < 150 kg, CrCl > 30 mL/min) AND *Sequential Compression Device (SCD) Assessment and Plan - Assessment (1) Acute cholecystitis Code(s): K81.0 - Acute cholecystitis Status: Acute - Plan Acute cholecystitis -Continue IV fluids, pain control -General surgery consulted and plans to take patient to the OR today for cholecystectomy -Preop antibiotics per surgery. DVT prevention -Sequential compression devices
[2018-01-29] MEDS ORDERED: Bupivacaine/Epinephrine PF Inj 0.5% 30 ML Vial ONE (11:13)
[2018-01-29] MEDS ORDERED: Lidocaine 1%/Epinephrine 1:100,000 Inj 30 ML Vial ONE (11:13)
[2018-01-29] MEDS ORDERED: Metoprolol Tartrate 25 MG Tablet PO SCH (11:30)
[2018-01-29] MEDS ORDERED: Chlorhexidine Gluconate 2% 1 Pack (2 Cloths) TOPICAL SCH (11:30)
[2018-01-29] MEDS ORDERED: Famotidine PF Inj 20 MG/2 ML Vial ONE (11:32)
[2018-01-29] MEDS ORDERED: ceFAZolin 2 GM Premix Inj 2 GM/50 ML PIGGYBACK IV.SIG ONE (11:34)
--- NOTE | 2018-01-29 11:40 | P.OP ---
- Preoperative Diagnosis (1) Acute cholecystitis - Postoperative Diagnosis (1) Acute cholecystitis Date of procedure: 01/29/18 Procedure: lap alejandra Anesthesia: GETA Surgeon: Pablo Gonzales MD Estimated blood loss (mL): 5 Pathology: other (gallbladder) Operation and Findings: acute cholecystitis
[2018-01-29] MEDS ORDERED: ceFAZolin 2 GM IV; once IV.SIG PRN (11:57)
[2018-01-29] MEDS ORDERED: Sodium Chlor 0.9% Inj 500 ML IV.SIG SCH (12:00)
[2018-01-29] MEDS ORDERED: Lidocaine PF 1% Inj 5 ML Syringe INFILTRATN ONE (12:02)
[2018-01-29] MEDS ORDERED: Esmolol Bolus Inj 100 MG/10 ML Vial IV.PUSH ONE (12:02)
[2018-01-29] MEDS ORDERED: Metoprolol Inj 5 MG/5 ML Vial IV.PUSH ONE (12:02)
[2018-01-29] MEDS ORDERED: Neostigmine Inj 5 MG/5 ML Syringe IV.PUSH ONE (12:02)
[2018-01-29] MEDS ORDERED: Phenylephrine/NS 1000 MCG/10ML Syringe IV.PUSH ONE (12:02)
[2018-01-29] MEDS ORDERED: Sugammadex Inj 200 MG/2 ML Vial IV.PUSH ONE (13:29)
[2018-01-29] MEDS ORDERED: fentaNYL Citrate Inj 100 MCG/2 ML Ampul ONE (13:29)
--- NOTE | 2018-01-29 14:17 | XR ---
EXAM DATE: 01/29/2018 2:02 PM EDT AGE/SEX: 42 years / Male INDICATIONS: Dyspnea post surgery. CLINICAL DATA: This is the patient's initial encounter. Patient reports that signs and symptoms have been present for 1 day and indicates a pain score of 0/10. MEDICAL/SURGICAL HISTORY: None. . Kidney stones COMPARISON: No prior exams available for comparison. FINDINGS: Low lung volumes with minimal airspace disease at the left lung base. Cardiomediastinal contours are within normal limits given portable technique and degree of hypoexpansion. Osseous structures are int act. CONCLUSION: 1. Low lung volumes with minimal left lung base atelectasis. Electronically signed by: Gabe Holbrook MD 01/29/2018 2:15 PM EDT
--- NOTE | 2018-01-29 19:21 | MP ---
cc: Pablo Gonzales MD DATE OF OPERATION: 01/29/2018 PREOPERATIVE DIAGNOSIS: Acute cholecystitis with cholelithiasis. POSTOPERATIVE DIAGNOSIS: Acute cholecystitis with cholelithiasis. PROCEDURE PERFORMED: Laparoscopic cholecystectomy. SURGEON: Pablo Gonzales MD. SETUP OPERATOR: See OR sheet. ANESTHESIA: GETA. IV FLUIDS: See anesthesia sheet. ESTIMATED BLOOD LOSS: 15 mL. DRAINS: None. COMPLICATIONS: None. CLASSIFICATION: Clean/contaminated. SPECIMENS: Gallbladder. FINDINGS: Acutely inflamed gallbladder with adhesions. Multiple large gallstones. COMPLICATIONS: None. INDICATIONS: The patient is a 42-year-old male, who presents with acute onset of right upper quadrant abdominal pain. He stated the pain started acutely yesterday at 11 a.m. and continued to get worse. No improvement. Came to the emergency department for evaluation, with an ultrasound showing thickened gallbladder wall with multiple gallstones. Decision was for laparoscopic cholecystectomy. DETAILS OF PROCEDURE: The patient was taken to the operating suite, placed in supine position. He was prepped and draped in the usual sterile fashion after induction of general endotracheal anesthesia. Brief timeout done stating correct patient, procedure, and surgical site. All in the room agreed. Attention first directed to the umbilicus superiorly. A local anesthetic injected with a stab maira incision made with a 15 blade. The Optiview 5-mm scope was used to enter the abdomen safely. Abdomen insufflated to 15 mm in pneumoperitoneum. Three other ports were placed, including epigastric 12 mm and two 5-mm right subcostal ports. The patient was placed in reverse Trendelenburg, airplaned to the left. The gallbladder was observed and noted to have several adhesions to the omentum. Hook electrocautery was used to remove these. The gallbladder fundus was grasped and retracted cephalad. Gallbladder was noted to have very thick rind, difficulty grasping; therefore, Endo Needle was used for aspiration to remove the bile from the gallbladder. The gallbladder was retracted cephalad. The cystic duct and cystic artery were dissected using hook electro Bovie cautery, a [place], and suction irrigation. The cystic artery was identified, 2 clips placed proximally and 1 distally. Endo Koby used to transect this. The cystic duct was identified as well. Two clips were placed proximal and 1 distal. Endo Koby used to transect this. Gallbladder was removed from the gallbladder fossa using hook electro Bovie cautery. All were placed in the Endo Catch Bag and removed from the abdomen through the epigastric port. Suction irrigation done until the effluent was clear. Electro Bovie cautery used as a hemostatic. We made the gallbladder fossa dry. No evidence of biliary leak. A small little piece of Surgicel placed at wound site. Pneumoperitoneum removed, the ports were removed. The 12 mm was closed with 0 Vicryl [id number] to the fascia and 4-0 Monocryl done in all subcuticular incision sites. Local anesthetic injected. Sterile dressings including Mastisol and Steri-Strips placed. The patient tolerated the procedure well. There were no intraoperative complications. All lap and needle counts were correct at the end of procedure. The patient was extubated and taken stable to PACU. MD SUNNY Marks/glen , 05:42 PM , 05:49 PM
--- NOTE | 2018-01-29 21:36 | ECG ---
Date Performed: 01/28/2018 Time Performed: 17:14:55 PTAGE: 42 years EKG: SINUS BRADYCARDIA BORDERLINE ECG INTERPRETATION BASED ON A DEFAULT AGE OF 41 YEARS PREVIOUS TRACING : 08/08/2015 18.14 Since the previous tracing, no significant change not ed DOCTOR: Etienne Calderón Interpretating Date/Time 01/29/2018 21:35:59
[2018-01-29 22:43] VITALS: RESP 18
[2018-01-30 06:37] VITALS: PULSE 83
[2018-01-30] MEDS: Sod Chloride 0.9% Inj 1,000 ML IV.CONT SCH ×2 (08:07→14:37)
--- NOTE | 2018-01-30 08:34 | P.PNGS ---
Subjective Patient reports: feels better (respiratory issues post op have resolved, doing better, no nausea) Physical Exam Vital signs: Vital Signs 01/29/18 11:30 01/29/18 12:04 01/29/18 13:22 Temperature 98.4 F Pulse Rate 94 H 90 Respiratory Rate 16 20 18 Blood Pressure 116/79 117/62 Pulse Oximetry 96 94 L 01/29/18 13:25 01/29/18 13:30 01/29/18 13:52 Temperature 99.4 F Pulse Rate 90 80 Respiratory Rate 18 18 18 Blood Pressure 117/62 118/75 Pulse Oximetry 94 L 98 01/29/18 14:02 01/29/18 14:10 01/29/18 14:22 Temperature Pulse Rate 80 73 90 Respiratory Rate 18 18 20 Blood Pressure 115/73 96/70 L 119/83 Pulse Oximetry 96 96 96 01/29/18 14:25 01/29/18 15:57 01/29/18 16:00 Temperature Pulse Rate 87 Respiratory Rate Blood Pressure 120/71 116/75 Pulse Oximetry 01/29/18 16:02 01/29/18 20:00 01/30/18 00:00 Temperature 98.8 F 98.6 F Pulse Rate 100 H 88 Respiratory Rate 18 16 Blood Pressure 120/64 Pulse Oximetry 93 L 93 L 94 L 01/30/18 04:00 Temperature 98.4 F Pulse Rate 83 Respiratory Rate 18 Blood Pressure 120/66 Pulse Oximetry 92 L Intake & Output 01/29/18 01/30/18 01/30/18 18:59 06:59 18:59 Intake Total 1000 / 1000 700 / 700 Output Total 1850 / 1850 Balance 1000 / 1000 -1150 / -1150 Weight 143.6 kg Intake: IV 1000 / 1000 100 / 100 NS Inj 1,000 ML @ 100 mls/hr IV 1000 / 1000 .CONT .Q10H [facility] Rx#:[id number] Rocephin Inj 2,000 MG In NS Inj 100 / 100 100 ML @ 200 mls/hr IV.SIG Q24H [facility] Rx#:[id number] Oral 600 / 600 Output: Urine 1850 / 1850 - Routine Respiratory Exam Present: CTA bilaterally - Routine Cardiovascular Exam Present: RRR - Routine Abdominal Exam Present: soft (incisional tenderness) Assessment and Plan - Assessment (1) Biliary colic Code(s): K80.50 - Calculus of bile duct without cholangitis or cholecystitis without obstruction Status: Acute Plan: 42 year old male with RUQ abdominal pain; cholelithiasis s/p laparoscopic cholecystectomy POD1 plan reg diet oob pain control po IS dc planning if tolerating lunch f.u with Dr. Gonzales 1 week - Plan patient seen at bedside doing well plan for d/c today as above f/u 1 week - Attending Attestation The exam, history, and the medical decision-making described in the above note were completed with the assistance of the mid-level provider. I reviewed and agree with the findings presented. I attest that I had a [id number] encounter with the patient on the same day, and personally performed and documented my assessment and findings in the medical record.
--- NOTE | 2018-01-30 09:12 | P.PN ---
Subjective Interval history: 42-year-old male who was seen and examined today for follow-up on cholecystitis. Patient did undergo surgical intervention yesterday with laparoscopic cholecystectomy. Patient is doing well today. Patient did have an event yesterday with hypoxia and increased secretions postsurgical. Patient is without any respiratory symptoms today. Patient vital signs are stable. Patient remains afebrile. Physical Exam Vital signs: Vital Signs 01/29/18 11:30 01/29/18 12:04 01/29/18 13:22 Temperature 98.4 F Pulse Rate 94 H 90 Respiratory Rate 16 20 18 Blood Pressure 116/79 117/62 Pulse Oximetry 96 94 L 01/29/18 13:25 01/29/18 13:30 01/29/18 13:52 Temperature 99.4 F Pulse Rate 90 80 Respiratory Rate 18 18 18 Blood Pressure 117/62 118/75 Pulse Oximetry 94 L 98 01/29/18 14:02 01/29/18 14:10 01/29/18 14:22 Temperature Pulse Rate 80 73 90 Respiratory Rate 18 18 20 Blood Pressure 115/73 96/70 L 119/83 Pulse Oximetry 96 96 96 01/29/18 14:25 01/29/18 15:57 01/29/18 16:00 Temperature Pulse Rate 87 Respiratory Rate Blood Pressure 120/71 116/75 Pulse Oximetry 01/29/18 16:02 01/29/18 20:00 01/30/18 00:00 Temperature 98.8 F 98.6 F Pulse Rate 100 H 88 Respiratory Rate 18 16 Blood Pressure 120/64 Pulse Oximetry 93 L 93 L 94 L 01/30/18 04:00 Temperature 98.4 F Pulse Rate 83 Respiratory Rate 18 Blood Pressure 120/66 Pulse Oximetry 92 L Intake & Output 01/29/18 01/30/18 01/30/18 18:59 06:59 18:59 Intake Total 1000 / 1000 700 / 700 Output Total 1850 / 1850 Balance 1000 / 1000 -1150 / -1150 Weight 143.6 kg Intake: IV 1000 / 1000 100 / 100 NS Inj 1,000 ML @ 100 mls/hr IV 1000 / 1000 .CONT .Q10H [facility] Rx#:[id number] Rocephin Inj 2,000 MG In NS Inj 100 / 100 100 ML @ 200 mls/hr IV.SIG Q24H [facility]ISE Rx#:[id number] Oral 600 / 600 Output: Urine 1850 / 1850 Narrative: GENERAL: Well-developed, well-nourished, in no acute distress. alert and orientated HEENT: Head is normocephalic without any lesions or masses noted. Facial features are symmetric. Eyes: Extraocular muscles are intact. Conjunctivae were clear. NECK: Supple without any masses. Trachea midline no deviation. No JVD, CARDIAC: Regular rhythm, regular rate. S1/S2 are heard. No murmurs gallops or rubs. LUNGS: Clear to auscultation bilaterally. No wheeze, rhonchi or rales. No use of accessory muscles on inspiration or expiration. ABDOMEN: Soft, mild tenderness diffusely.. Nondistended. Bowel sounds heard in all 4 quadrants. No organomegaly or masses. Negative rebound, negative guarding EXTREMITIES: No edema, pulses are equal bilaterally. No cyanosis or clubbing NEUROLOGY: Mood and affect appear appropriate. Cranial nerves II through XII grossly intact. Moving all extremities, speech is clear Results - Labs CBC & Chem 7: 01/29/18 05:15 01/29/18 05:15 - Imaging Impressions Chest X-Ray 01/29/18 13:47 CONCLUSION: 1. Low lung volumes with minimal left lung base atelectasis. - Procedures 01/29/18: Laparoscopic cholecystectomy Assessment and Plan - Assessment (1) Acute cholecystitis Code(s): K81.0 - Acute cholecystitis Status: Acute - Plan Acute cholecystitis -Continue IV fluids, pain control -General surgery consulted -Status post cholecystectomy 01/29/18 -Preop antibiotics per surgery. -Discussed with general surgery who indicated the patient is stable for discharge. Postoperative hypoxia and increased secretions -Patient required BiPAP supplementation postoperatively -Chest x-ray was performed which did indicate bibasilar atelectasis -Patient had been weaned off oxygen and is maintaining O2 saturations -Incentive spirometry -Patient does have outpatient appointment with Dr. Anaya for evaluation and sleep study DVT prevention -Sequential compression devices Discharge Planning: Discharge home in stable condition Activity: Ad glenys. Diet: Regular diet Medication per medication reconciliation Follow-up with primary medical doctor in 1 week
[2018-01-30 13:34] VITALS: BP 134/73; TEMP 98.4; O2SAT 95
== END 2018-01-30 15:00 | disposition home or self-care (01) ==
LOC: PHED 17:07 → PHEDA 19:59 → PH3 22:19 → PHICU 01-29 14:42 → PH3 01-29 15:12 → PHICU 01-29 15:51
PROVIDERS: ADMIT Hospitalist; ATTEND Hospitalist